=== PATIENT | female | born 2000 | race Caucasian/White ===

== ENCOUNTER → 2022-01-26 | Emergency (ER) | payer OTHER ==
[~2022-01-26] VITALS: Ht 152.4 cm; Wt 76.2 kg
[~2022-01-26] MED LIST: NITR-85 PO; PHEN-726 PO
[2022-01-26 11:33] VITALS: BP_SYST 121
== END | disposition home or self-care (01) ==
LOC: SED 11:27
DX: N39.0 Urinary tract infection, site not specified (principal); R30.0 Dysuria; Z79.899 Other long term (current) drug therapy
CPT/HCPCS: 99283